=== PATIENT | female | born 1980 | race Asian ===

== ENCOUNTER 2017-09-22 15:05 | Inpatient (IN) | payer OTHER ==
[~2017-09-22] VITALS: Ht 154.9 cm; Wt 63.0 kg
[2017-09-22 15:59] VITALS: BP 162/87
[2017-09-22 16:01] LABS: ABSOLUTE BASOPHIL COUNT 0 /CUMM (0.0-0.2); ABSOLUTE EOSINOPHIL COUNT 0 /CUMM (0.0-0.7); ABSOLUTE MONOCYTE COUNT 0.9 /CUMM (0.10-0.60); BASOPHIL % 0 % (0.0-2.0); EOSINOPHIL % 0.2 % (0-5); GRANULOCYTE % 78.5 % (42.2-75.2); HEMATOCRIT 32.6 % (37-47); MEAN CORPUSCULAR HGB 21.9 PG (27.0-31.0); MEAN CORPUSCULAR HGB CONC 31.9 G/DL (33.0-37.0); MEAN CORPUSCULAR VOLUME 68.6 FL (81.0-99.0); MEAN PLATELET VOLUME 9.4 FL (7.4-10.4); PLATELET COUNT 191 /CUMM (130-400); RBC DISTRIBUTION WIDTH 15.8 % (11.5-14.5); RED BLOOD CELL CT 4.75 /CUMM (4.20-5.40)
[2017-09-23 09:31] LABS: ABSOLUTE BASOPHIL COUNT 0 /CUMM (0.0-0.2); MEAN PLATELET VOLUME 9.5 FL (7.4-10.4)
[2017-09-23 10:17] LABS: ABSOLUTE EOSINOPHIL COUNT 0.1 /CUMM (0.0-0.7); ABSOLUTE GRANULOCYTE CT 8.1 /CUMM (1.4-6.5); ABSOLUTE MONOCYTE COUNT 0.7 /CUMM (0.10-0.60); BASOPHIL % 0.2 % (0.0-2.0); EOSINOPHIL % 0.7 % (0-5); MEAN CORPUSCULAR HGB CONC 31.6 G/DL (33.0-37.0); MEAN CORPUSCULAR VOLUME 69.7 FL (81.0-99.0); PLATELET COUNT 159 /CUMM (130-400); RBC DISTRIBUTION WIDTH 16.3 % (11.5-14.5); RED BLOOD CELL CT 3.77 /CUMM (4.20-5.40)
[2017-09-23 11:08] LABS: HEMATOCRIT 26.3 % (37-47)
--- NOTE | 2017-09-23 12:58 | PN- Post Delivery/GYN ---
Subjective Subjective: pt doing well. amb / void / katie po. pain well controlled. Objective Last 24 Hrs of Vital Signs/I&O afeb, v/ss Vital Signs Date Time Temp Pulse Resp B/P B/P Pulse O2 O2 Flow FiO2 Mean Ox Delivery Rate 09/22 1559 Physical Exam: nad abd soft nt ff josé luis min lochia ext nt no ed Current Medications: Current Medications Sig/Gisselle Start time Last Medication Dose Route Stop Time Status Admin Docusate Sodium 100 MG .STK-MED ONE 09/23 001 DC PO 09/23 0012 Docusate Sodium 100 MG AT BEDTIME NEED.. 09/22 2230 09/23 PO 0020 Ibuprofen 800 MG .STK-MED ONE 09/23 001 DC PO 09/23 0011 Ibuprofen 800 MG Q6P PRN 09/22 1845 09/23 PO 0019 Lactated Ringer's 1,000 ML Q8H 09/22 1515 AC 09/22 IV 1430 Oxytocin 20 UNITS Q5H 09/22 1600 DC 09/22 Lactated Ringer's 1,000 ML IV 09/22 2059 1450 Last 24 Hrs of Labs/Ramón: Laboratory Tests 09/23/17 0630: CBC w Diff NO MAN DIFF REQ, RBC 3.77 L, MCV 69.7 L, MCH 22.0 L, MCHC 31.6 L, RDW 16.3 H, MPV 9.5, Gran % 68.0, Lymphocytes % 25.0, Monocytes % 6.1, Eosinophils % 0.7, Basophils % 0.2, Absolute Granulocytes 8.1 H, Absolute Lymphocytes 3.0, Absolute Monocytes 0.7 H, Absolute Eosinophils 0.1, Absolute Basophils 0 09/22/17 1615: Urine Color BLDY H, Urine Clarity CLDY H, Urine pH 6.0, Ur Specific Watson 1.025, Urine Protein 30 H, Urine Ketones TRACE H, Urine Nitrite NEG, Urine Bilirubin NEG, Urine Urobilinogen 0.2, Ur Leukocyte Esterase NEG, Ur Microscopic SEDIMENT EXAMINED, Urine RBC >75 H, Urine WBC RARE, Ur Epithelial Cells FEW, Urine Bacteria RARE H, Urine Hemoglobin LARGE H, Urine Glucose NEG 09/22/17 1515: Estimated GFR > 60, Uric Acid 5.5, AST 8 L, ALT 12, Lactate Dehydrogenase 330, CBC w Diff NO MAN DIFF REQ, RBC 4.75, MCV 68.6 L, MCH 21.9 L, MCHC 31.9 L, RDW 15.8 H, MPV 9.4, Gran % 78.5 H, Lymphocytes % 14.5 L, Monocytes % 6.8, Eosinophils % 0.2, Basophils % 0, Absolute Granulocytes 11.0 H, Absolute Lymphocytes 2.0, Absolute Monocytes 0.9 H, Absolute Eosinophils 0, Absolute Basophils 0 Assessment/Plan Assessment/Plan ppd 1 s/p precip of sga , doing well asymptomatic anemia -start fe bid, colace -routine pp care -obtain records from [facility]
[2017-09-24] MEDS ORDERED: IBUPROFEN800 M1 PO (09:28)
--- NOTE | 2017-09-24 09:31 | PN- OBGYN ---
Surgical Brief Attending Note Brief Attending Note: PPD#2 pt is resting in bed, no complaints, tolerate diet, void without difficulties. ambulating well PE: VSS CV RRR Lungs CTA B/L Abdomen: soft, nontender, uterus firm, fundus below umbilicus, lochia mild Ext: DCT (-) A/P: 36yo, s/p , PPD#2 1. encourage ambualtion 2. RT PP care 3. will d/c home, discharge instructions given, she understand. pt stated she will f/u at [facility] where she had care for PP visit. precautions given. she understand.
== END 2017-09-24 11:45 | DRG 561 ==
LOC: GNO 15:05
PROVIDERS: Obstetrics & Gynecology
DX: Z39.0 Encounter for care and examination of mother immediately after delivery (principal); O90.81 Anemia of the puerperium
CPT/HCPCS: GNOS; 36415; 81001; 88307; J7120